=== PATIENT | male | born 1985 | race African-American/Black ===

== ENCOUNTER 2017-03-11 00:21 | Emergency (ER) | payer OTHER ==
[~2017-03-11] VITALS: Ht 175.3 cm; Wt 96.2 kg
[~2017-03-11 00:21] MED LIST: ALPRAZOLAM0.25 M1 PO; ANUSOL-HC25 M1 RC; MOTRIN600 MG PO
[2017-03-11 00:26] VITALS: BP 161/93
--- NOTE | 2017-03-11 00:30 | ED THROAT/DENTAL COMPLAINT ---
History of Present Illness General Chief Complaint: Sore Throat, Dental Pain Stated Complaint: SORE THROAT Source: patient Exam Limitations: no limitations Vital Signs & Intake/Output Vital Signs & Intake/Output ED Intake and Output 03/12 0000 03/11 1200 Intake Total Output Total Balance Patient 212 lb Weight Weight Reported by Patient Measurement Method Allergies Coded Allergies: oxycodone (Intermediate, FREAKING OUT 03/20/16) Reconcile Medications Alprazolam 0.25 MG TABLET 0.25 MG PO PRN ANXIETY (Reported) Augmentin (Augmentin 500-125 Tablet) 500 MG-125 MG TABLET 1 TAB PO BID PHARYNGITIS Methylprednisolone. (Medrol) 4 MG TAB.DS.PK 1 DP PO AD INFLAMMATION 6 on day 1 then reduce by one tablet daily until gone Triage Note: SORE THROAT X1 WEEK. WORSE TONIGHT. DENIES FEVERS. Triage Nurses Notes Reviewed? yes Onset: Gradual Duration: getting worse Timing: recent history Severity: moderate Severity Numbers: 5 HPI: Patient is a 31-year-old male who presents emergency with concerns of a one-week history of gradually worsening sore throat were today the sore throat is severe enough that patient presented to the emergency room. Patient states that swallowing makes worse has associated symptoms of cervical anterior lymph node enlargement and throat swelling symptoms. Positive sick contacts at work. Denies any cough headache years pain sinus pain or pressure (SASHA BHARDWAJ) Past History Travel History Traveled to [place] past 21 day No Medical History Any Pertinent Medical History? see below for history Neurological: NONE EENT: NONE Cardiovascular: hypertension Respiratory: NONE Gastrointestinal: NONE Hepatic: NONE Renal: NONE Musculoskeletal: R KNEE HAIRLINE FX LOWER BACK SPASMS/PAIN Psychiatric: anxiety Endocrine: NONE Blood Disorders: NONE Cancer(s): NONE Other Medical Hx: hemorrhoid Surgical History Surgical History: non-contributory Psychosocial History What is your primary language Amharic Tobacco Use: Never used Family History Hx Contributory? No (SASHA BHARDWAJ) Review of Systems Review of Systems Constitutional: Reports: no symptoms. EENTM: Reports: see HPI, throat pain, throat swelling. Respiratory: Reports: no symptoms. Cardiovascular: Reports: no symptoms. GI: Reports: no symptoms. Genitourinary: Reports: no symptoms. Musculoskeletal: Reports: no symptoms. Skin: Reports: no symptoms. Neurological/Psychological: Reports: no symptoms. Hematologic/Endocrine: Reports: no symptoms. Immunologic/Allergic: Reports: see HPI, lymphadenopathy. All Other Systems: Reviewed and Negative (SASHA BHARDWAJ) Physical Exam Physical Exam General Appearance: no apparent distress, alert Head: atraumatic Eyes: Bilateral: normal appearance. Ears: Bilateral: canal normal, Tympanic normal. Nose: normal inspection Mouth/Throat: normal mouth inspection, tonsillar exudate, tonsillar swelling Neck: lymphadenopathy (R), lymphadenopathy (L) Cardiovascular/Respiratory: normal breath sounds, normal peripheral pulses, regular rate/rhythm Neurologic/Psych: no motor/sensory deficits Skin: intact, normal color, warm/dry Core Measures ACS in differential dx? No Severe Sepsis Present: No Septic Shock Present: No (SASHA BHARDWAJ) Progress Differential Diagnosis: epiglottitis, Ludwigs angina, meningitis, odontogenic abscess, lucas-tonsillar abscess, pharyngeal for. body, stomatitis/gingivitis, strep pharyngitis, tooth fracture Plan of Care: Orders Procedure Date/time Status THROAT CULTURE W/QUICK STREP 03/11 0024 Active Patient was afebrile nontoxic-appearing no signs of epiglottitis or Anival's angina. (SASHA BHARDWAJ) Departure Departure Disposition: HOME OR SELF CARE Condition: Stable Clinical Impression Primary Impression: Streptococcal pharyngitis Referrals: ALEXUS FARFAN DO (PCP/Family) Additional Instructions: As discussed begin the prescription of Augmentin as directed for full course and a prescription Medrol Dosepak for inflammation and Magic mouthwash for sore throat. Prescriptions waiting at [facility] [place]. If symptoms worsen return to emergency room. Begin Tylenol for fevers Motrin for pain. If no better in 3 days follow-up with your primary care doctor. Departure Forms: Customer Survey General Discharge Information Prescriptions: Current Visit Scripts Augmentin (Augmentin 500-125 Tablet) 1 TAB PO BID #20 TAB Methylprednisolone. (Medrol) 1 DP PO AD #1 DP 6 on day 1 then reduce by one tablet daily until gone (SASHA BHARDWAJ) PA/PROGRAM DIRECTOR [employer] Co-Sign Statement Statement: ED Attending supervision documentation- [] I saw and evaluated the patient. I have also reviewed all the pertinent lab results and diagnostic results. I agree with the findings and the plan of care as documented in the PA's/PROGRAM DIRECTOR [employer]'s documentation. [X] I have reviewed the ED Record and agree with the PA's/PROGRAM DIRECTOR [employer]'s documentation. [] Additions or exceptions (if any) to the PAs/PROGRAM DIRECTOR [employer]ALENT's note and plan are summarized below: [] (RAMÓN JEONG,NATALI Alejandro)
[2017-03-11] MEDS ORDERED: AUGMENTIN 500-1 EACH PO (00:37)
[2017-03-11] MEDS ORDERED: MEDROL4 M2 PO (00:37)
== END 2017-03-11 00:50 ==
LOC: ERH 00:21
DX: J02.0 Streptococcal pharyngitis (principal)